=== PATIENT | female | born 1990 | race Caucasian/White ===

== ENCOUNTER 2024-01-21 12:45 | Inpatient (IN) ==
--- NOTE | 2024-01-18 08:53 | Anesthesiology Consultation ---
Date of Service January 18, 2024 Assessment & Plan (1) Encounter for pre-operative examination: Infectious disease screening: Per assessment on 01/18/24- No known recent infectious disease contacts or current infectious disease symptoms. 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 History Surgery Operation Date: 01/24/24 07:30 Proposed Procedures p Section (Delivery of Baby Through Abdominal Incision) - Chloe Ronquillo MD Height/Weight Height: 5 ft 2 in Weight: 63.503 kg Allergies Allergy/AdvReac Type Severity Reaction Status Date / Time No Known Allergies Allergy Verified 01/18/24 08:31 Medications Home Medications Medication Instructions Recorded Confirmed Last Taken [id number] oil 1 tab PO DAILY 07/19/23 01/18/24 Unknown [ Gummy] albuterol sulfate 90 mcg/actuation 1 puff inhalation QID PRN asthma 01/18/24 01/18/24 Unknown aerosol inhaler Past Medical History Medical History Asthma, mild intermittent History of depression Past Family History Family History Aunt Breast cancer maternal Father Heart disease Hypertension Grandmother (Paternal) Myocardial infarction Denies family history of Ovarian cancer Prostate cancer Colorectal cancer Past Surgical History Surgical History H/O section 2012, 2013, 2018 Social History Smoking Status: Never smoker Do You Dip or Chew Tobacco: No Hx Alcohol Use: No Hx Substance Use: No substance use type: does not use
[2024-01-21] MEDS ORDERED: PHENYLEPHRINE 100MCG/ML 5ML SYR ONE (15:32)
[2024-01-21] MEDS ORDERED: PHENYLEPHRINE HCL 25 MG/250 ML NSS IV ONE (15:32)
[2024-01-21] MEDS ORDERED: ONDANSETRON INJ 2 MG/ML 2 ML VIAL ONE (15:32)
[2024-01-21] MEDS ORDERED: DEXAMETHASONE SOD INJ 4 MG/ML VIAL ONE (15:32)
[2024-01-21] MEDS ORDERED: MoRPHine SULFATE PF 1 MG/ML 10 ML AMP/VIAL ONE (15:33)
[2024-01-21] MEDS ORDERED: fentaNYL citrate PF 100 MCG/2 ML VIAL ONE (15:33)
[2024-01-21] MEDS ORDERED: SODIUM CHLORIDE 0.9% 1,000 ML IV SCH ×3 (15:45→19:30)
[2024-01-21 16:28] LABS: Hematocrit (blood only) 36.7 % (37.0-47.0); Hemoglobin 12.6 g/dl (12.0-16.0); Mean Corpuscular Hemoglobin 31.3 pg (25.0-34.0); Mean Corpuscular Hgb Conc 34.3 g/dL (32.0-36.0); Mean Corpuscular Volume 91.3 fL (80.0-100.0); Mean Platelet Volume 10.5 fL (9.4-12.4); Platelet Count 281 K/uL (130-400); RDW Standard Deviation 42.7 fL (36.4-46.3); Red Blood Count 4.02 M/uL (4.20-5.40); White Blood Count 8.16 K/ul (4.8-10.8)
[2024-01-21] MEDS: ACETAMINOPHEN 500 MG TAB PO SCH (16:55)
[2024-01-21] MEDS: ceFAZolin 2000MG 2,000 MG/15 ML SYR IV SCH (17:14)
[2024-01-21] MEDS: CITRIC ACID/SODIUM CITRATE 15 ML UDC PO SCH (17:14)
--- NOTE | 2024-01-21 17:19 | History & Physical Report ---
Date of Service January 21, 2024 Assessment & Plan (1) 39 weeks gestation of : (2) Previous delivery affecting , antepartum: (3) IUGR (intrauterine growth restriction) affecting care of mother: Plan admit,iv, labs. fhts categ 1. aware of indication for delivery and recommendations for such today. has been npo. consent reviewed and signed. will need to d/w us interval tubal and plan to sign ma tubal paperwork. Admission and Anticipated Discharge Date Admission Date: January 21, 2024 History of Present Illness Chief Complaint: planned c/s, iugr Primary Care Provider: Anjali Bell MD 33yo at 39wks ega present to LD from office after new dx of iugr, ac <2%. She was at her routine appt for her planned repeat c/s on wednesday. Physician planned u/s with s<d and efw 12% but ac <2%. She was recommended to present to LD for delivery. NST done in office and reactive. Patient now wants to do tubal but she never signed her appropriate insurance paperwork and aware cannot be done today. PNC c/b 1. Prior c/s x 3. 2. Prior delivery at 36wks PNL rh pos, ri, gbs neg OBH: c/s x 3, x 1. one which was her 2nd born for breech, prom GYNH: nl paps no stds Allergies Allergy/AdvReac Type Severity Reaction Status Date / Time No Known Allergies Allergy Verified 01/18/24 08:31 Home Medications Medication Instructions Recorded Confirmed Type [id number] oil 1 tab PO DAILY 07/19/23 01/21/24 History [ Gummy] albuterol sulfate 90 mcg/actuation 1 puff inhalation QID PRN asthma 01/18/24 01/21/24 History aerosol inhaler Patient History Medical History Asthma, mild intermittent History of depression Surgical History H/O section 2012, 2013, 2017 Family History Aunt Breast cancer maternal Father Heart disease Hypertension Grandmother (Paternal) Myocardial infarction Denies family history of Ovarian cancer Prostate cancer Colorectal cancer Social History Smoking Status: Never smoker Second Hand Exposure: No; Do You Dip or Chew Tobacco: No; Tobacco Cessation Education Requested by Patient: No Hx Alcohol Use: No Hx Substance Use: No Preferred Language: Iranian Communication Ability: Effective Cylinder Press Feeder Required: No Beliefs That Will Affect Care: None marital status: Single marital status details: Johnie Fernandez (37) [phone] Current Living Situation: Family and Significant Other Current Living Situation Comment: lives with boyfriend, 4 children and dog current occupational status: employed 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- [employer] How many Children do You have: 4 Other Information That Helps Us Care for You: No Feels Safe at Home: Yes Safety Concerns: Feels Safe At This Time Childhood Exposure to Second-Hand Smoke: Yes Diet: regular Dental Care, Regularly: No Physical Activity Frequency: 1-2 Times per Week Seatbelt Use: always Sunscreen Use: Yes Assistive Devices: Glasses Review of Systems as per Subjective / HPI Physical Exam Constitutional: WD/WN, vitals as above Respiratory: normal respiratory effort, lungs clear to auscultation Cardiovascular: Rate/Rhythm: regular rate and regular rhythm Gastrointestinal (Abdomen): soft gravid nt Musculoskeletal: no edema nontender calves Neurologic: grossly normal Psychiatric: A+Ox3, euthymic affect Genitourinary: OB Exam Monitor Tracing: + external FHT monitor used, + external uterine monitor used (irreg), + category I and + normal FHT variability Results & Data Vital Signs (Past 12 Hours) Vital Signs Temp Pulse Resp BP 01/21/24 14:26 97.5 F L 20 01/21/24 14:24 77 109/78 Coding Level of Care Code None Diagnoses 39 weeks gestation of Z3A.39 Previous delivery affecting , antepartum O34.219 IUGR (intrauterine growth restriction) affecting care of mother O36.4100
[2024-01-21] MEDS ORDERED: MoRPHine SULFATE PF 1 MG/ML 10 ML AMP/VIAL INT SPINAL ONE (17:38)
[2024-01-21] MEDS ORDERED: HYDROmorphone INJ 0.5 MG/0.5 ML SYR IV PRN (17:38)
[2024-01-21] MEDS ORDERED: NALBUPHINE HCL INJ 10 MG/ML AMP IV PRN (17:38)
[2024-01-21] MEDS ORDERED: ONDANSETRON INJ 2 MG/ML 2 ML VIAL IV PRN (17:38)
[2024-01-21] MEDS ORDERED: diphenhydrAMINE 50 MG/ML VIAL IV PRN (17:38)
[2024-01-21] MEDS ORDERED: NALOXONE HCL 1 MG in SODIUM CHLORIDE 0.9% 1,000 ML IV PRN (17:38)
[2024-01-21] MEDS ORDERED: oxyCODONE HCL IR 5 MG TAB (IMMEDIATE RELEASE) PO PRN (17:38)
[2024-01-21] MEDS ORDERED: PROMETHAZINE 6.25 MG/50.25 ML BAG IV PRN (17:38)
[2024-01-21] MEDS ORDERED: NALOXONE HCL 0.4 MG/1 ML VIAL/CARP IV PRN (17:38)
[2024-01-21] MEDS ORDERED: ePHEDrine sulfate 50 MG/ML AMP IV PRN (17:38)
[2024-01-21] MEDS ORDERED: NO NARCOTICS OR SEDATIVES SCH (17:45)
[2024-01-21] MEDS ORDERED: DC INTRASPINAL MORPHINE SCH (17:45)
--- NOTE | 2024-01-21 18:35 | Operative Report ---
Post Operative Report Pre & Post Diagnosis Operation Date: 01/24/24 07:30 <No data on this case meets the specified criteria> Preop Dx: 1. 39 wk iup 2. IUGR 3. Prior c/s x 3, desires repeat c/s Postop Dx: same, uterine window I identified the patient and participated in the time-out.: Yes Procedure Operation Date: 01/24/24 07:30 <No data on this case meets the specified criteria> Repeat Low Transverse Section. Surgeon Tatianna Amador MD, FACOG Sales Project Coordinator Shira Quantitative Blood Loss (QBL) 433 Findings Consistent with Post-Op Diagnosis (viable infant, apgars 8,9. uterine window, extremely thin muscle with adherent bladder on lower edge of hysterotomy. normal ovaries and tubes bilaterally. ) Fluids 900 Specimens cord blood Drains zaman Anesthesia Type Spinal Complications none Disposition Accompanied Patient To Recovery: No Disposition: L&D Indications 33yo at 39wks with newly discovered iugr with h/o c/s x 3 for planned repeat c/s. Description of Procedure The patient was taken to the operating room and identified. After adequate anesthesia was obtained, she was placed in the supine position with a leftward tilt on the operating table and prepped and draped in the usual sterile fashion. A zaman catheter had already been placed. The knife was used to create a Pfannensteil skin incision that was carried down to the underlying layer of fascia. The fascia was nicked in the midline and this opening was extended laterally using Ely scissors. Charis clamps were placed on the superior and inferior aspect of the fascial incision tenting it upward and the underlying rectus muscles were dissected off the overlying fascia both sharply and bluntly using Ely scissors. The rectus muscles were bluntly in the midline. The peritoneal cavity was bluntly entered into. This opening was stretched. The bladder blade was placed. The vesicouterine peritoneum was elevated and opened up into and the bladder flap was created digitally and bladder blade was replaced. The knife was used to create a hysterotomy and this opening was stretched. The operators hand was placed through the hysterotomy and the bladder blade was removed. The head was elevated and flexed and with fundal pressure the head was delivered. The shoulders and body were rapidly de livered. The cord was clamped and cut and the 's mouth and nares were bulb suction. The infant was handed off to the awaiting pediatricians. Cord blood was obtained. The placenta was manually expressed. The uterus was exteriorized and cleared of all clots and debris. Dilute IV Pitocin was begun. The uterine tone was improving. The hysterotomy was closed in a running interlocking fashion using 0 Vicryl followed by a second imbricating layer of 0 Vicryl. The muscle layer was very thin and approached bladder edge on lower edge. Bladder backfilled to avoid any sutures in dome. The hysterotomy was hemostatic. The pelvis was irrigated. The uterus was returned to the abdomen. The gutters were cleared of all clots and debris. The hysterotomy was reinspected and noted to be hemostatic. The fascia was then closed in running fashion using 0 Vicryl. The subcutaneous fat was copiously irrigated and reapproximated using 2-0 chromic. The skin was closed in a subcuticular fashion using 4-0 monocryl. At this point the procedure was terminated. The patient was transferred to the recovery room in stable condition. All sponge, lap and needle counts are correct x2. I attest to the content of the Intraoperative Record and any orders documented therein. Any exceptions are noted below.
--- NOTE | 2024-01-21 18:44 | Anesthesiology Progress Note ---
Date of Service January 21, 2024 Anesthesia Post Procedure Vital Signs Vital Signs: Temp Pulse Resp BP Pulse Ox 01/21/24 18:41 71 100 01/21/24 18:36 66 96/60 L 100 01/21/24 14:26 36.4 C L 20 01/21/24 14:24 77 109/78 Transfer of Care Handoff Completed per policy Notes Mental Status: alert / awake / arousable and participated in evaluation Patient Amnestic to Procedure: No Nausea / Vomiting: adequately controlled Pain: adequately controlled Airway Patency, RR, SpO2: stable & adequate BP & HR: stable & adequate Hydration State: stable & adequate Neuraxial Anesthesia: was administered and sensory block is resolving Anesthetic Complications: no major complications apparent and Pt Satisfied with anesthetic care
[2024-01-21] MEDS ORDERED: DIPHTHER/TETAN/PERTUS Vaccine (Tdap, Adol/Adult) 0.5mL IM ONE (19:20)
[2024-01-21] MEDS ORDERED: IBUPROFEN 600 MG TAB PO PRN (19:20)
[2024-01-21] MEDS ORDERED: ALBUTEROL HFA 8 GM INHALER INH PRN (19:20)
[2024-01-21] MEDS ORDERED: OXYTOCIN 30 UNITS/NSS 30 UNITS/500 ML BAG IV PRN (19:20)
[2024-01-21] MEDS ORDERED: ACETAMINOPHEN 325 MG TAB PO PRN (19:20)
[2024-01-21] MEDS ORDERED: BENZOCAINE 20% SPRY 85 APPLN/85 GM CAN EXT PRN (19:20)
[2024-01-21] MEDS ORDERED: HYDROCORTISONE ACETATE 25 MG SUPP PR PRN (19:20)
[2024-01-21] MEDS ORDERED: KETOROLAC 30 MG/ML VIAL IV SCH ×2 (19:30)
[2024-01-21] MEDS ORDERED: SENNA 8.6 MG TAB PO PRN (19:30)
[2024-01-21] MEDS ORDERED: CALCIUM CARBONATE 500 MG CHEWABLE TAB PO PRN (19:30)
[2024-01-21] MEDS ORDERED: MAGNESIUM HYDROXIDE SUSP 30 ML UDC PO PRN (19:30)
[2024-01-21] MEDS: KETOROLAC 30 MG/ML VIAL ONE (20:32)
[2024-01-21] MEDS ORDERED: Nursing to Pharmacy Communication SCH (21:45)
[2024-01-21] MEDS: SIMETHICONE 80 MG CHEW PO SCH (23:24)
[2024-01-21] MEDS: DOCUSATE SODIUM 100 MG CAP PO SCH (23:24)
[2024-01-22] MEDS: KETOROLAC 30 MG/ML VIAL IV SCH (02:12)
[2024-01-22] MEDS: ACETAMINOPHEN 325 MG TAB PO SCH (02:13)
--- NOTE | 2024-01-22 06:20 | Obstetrical Progress Note ---
Date of Service January 22, 2024 Assessment & Plan (1) IUGR (intrauterine growth restriction) affecting care of mother: (2) examination following delivery: Plan Pt's hemoglobin and vital signs are within acceptable limits in setting of pt report of dizziness with standing and waling. Pt encouraged to eat and maintain hydration. Otherwise, recovering well. Encourage ambulation Monitor H&H as needed Pain medication as needed Encourage breast feeding Anticipate DC to home on 01/23/24 Admission and Anticipated Discharge Date Admission Date: January 21, 2024 Supervising Physician Co-Signing Physician Notes Resident Physician Supervision Note: I was present with Dr. Beasley during the history and exam. I discussed the case with the resident and agree with the findings and plan as documented in the note. Any exceptions or clarifications are listed here: stable, routine care. eating, awaiting first void. some dizziness but better. no cp or sob. abd soft ff 2 down nt. ext nt calves. incision c/d/i. pod #1 s/p c/s hgb noted. Documented By: Tatianna Amador MD, FACOG Subjective Pt is 33 yo post-op day 1 s/p at 39w for IUGR. Ambulation:In room Voiding:no Passing gas: no BM: no Diet tolerance:regular diet Lochia:bloody, no clots Feeding type: breast Current pain level: 1-3 /10 improved with Tylenol and Toradol Resting comfortably this morning in NAD. Denies MAYEN, CP, SOB, N/V/D, LE pain/swelling. Pt endorses dizziness when standing and walking. Review of Systems Review of Systems: As per HPI Physical Exam Constitutional: WD/WN, vitals as above Respiratory: normal respiratory effort, lungs clear to auscultation Cardiovascular: RRR, no murmur, no edema Gastrointestinal (Abdomen): normal bowel sounds, soft, nontender, no hepatosplenomegaly Uterine fundus firm and at level of umbilicus Incision is clean. dry and well approximated Neurologic: PERRL, EOMI, accommodation nl, no face palsy, no dysarthria Moving all 4 extremities on command Psychiatric: A+Ox3, euthymic affect Results & Data Vital Signs (Past 12 Hours) Vital Signs Temp Pulse Pulse Resp BP BP Pulse Ox 01/22/24 05:00 16 100 01/22/24 04:00 17 99 01/22/24 03:00 16 99 01/22/24 02:00 16 100 01/22/24 01:30 36.4 C L 61 18 120/82 100 01/22/24 01:00 16 100 01/22/24 00:01 16 100 01/21/24 23:00 18 100 01/21/24 22:00 16 99 01/21/24 21:30 01/21/24 21:30 36.5 C 65 16 116/79 99 01/21/24 21:00 16 100 01/21/24 20:32 58 L 18 122/81 01/21/24 20:31 59 L 99 01/21/24 20:26 65 120/87 98 01/21/24 20:21 71 98 01/21/24 20:16 98 01/21/24 20:16 59 L 01/21/24 20:16 56 L 115/78 01/21/24 20:11 63 98 01/21/24 20:06 98 01/21/24 20:06 58 L 01/21/24 20:06 66 112/83 01/21/24 20:01 60 98 01/21/24 19:56 63 109/77 99 01/21/24 19:51 70 98 01/21/24 19:50 68 111/71 01/21/24 19:46 70 97 01/21/24 19:41 71 98 01/21/24 19:36 18 01/21/24 19:36 18 01/21/24 19:36 97 01/21/24 19:36 71 01/21/24 19:36 68 112/82 01/21/24 19:31 65 98 01/21/24 19:26 67 114/73 98 01/21/24 19:21 75 97 01/21/24 19:17 66 18 113/60 01/21/24 19:16 64 98 01/21/24 19:11 83 98 01/21/24 19:06 18 01/21/24 19:06 18 01/21/24 19:06 98 01/21/24 19:06 73 01/21/24 19:06 80 108/55 L 01/21/24 19:01 69 98 01/21/24 18:58 76 100/57 L 01/21/24 18:56 77 100 01/21/24 18:55 57 L 20 98 01/21/24 18:51 57 L 98 01/21/24 18:46 58 L 104/60 99 01/21/24 18:45 58 L 20 104/60 99 01/21/24 18:41 71 100 01/21/24 18:36 66 96/60 L 100 O2 Del Method 01/22/24 05:00 01/22/24 04:00 01/22/24 03:00 01/22/24 02:00 01/22/24 01:30 Room Air 01/22/24 01:00 01/22/24 00:01 01/21/24 23:00 01/21/24 22:00 01/21/24 21:30 Room Air 01/21/24 21:30 Room Air 01/21/24 21:00 01/21/24 20:32 01/21/24 20:31 01/21/24 20:26 01/21/24 20:21 01/21/24 20:16 01/21/24 20:16 01/21/24 20:16 01/21/24 20:11 01/21/24 20:06 01/21/24 20:06 01/21/24 20:06 01/21/24 20:01 01/21/24 19:56 01/21/24 19:51 01/21/24 19:50 01/21/24 19:46 01/21/24 19:41 01/21/24 19:36 01/21/24 19:36 01/21/24 19:36 01/21/24 19:36 01/21/24 19:36 01/21/24 19:31 01/21/24 19:26 01/21/24 19:21 01/21/24 19:17 01/21/24 19:16 01/21/24 19:11 01/21/24 19:06 01/21/24 19:06 01/21/24 19:06 01/21/24 19:06 01/21/24 19:06 01/21/24 19:01 01/21/24 18:58 01/21/24 18:56 01/21/24 18:55 01/21/24 18:51 01/21/24 18:46 01/21/24 18:45 01/21/24 18:41 01/21/24 18:36 Laboratory Results 01/22/24 01/21/24 Range/Units 06:07 16:02 WBC 12.78 H 8.16 (4.8-10.8) K/ul RBC 3.73 L 4.02 L (4.20-5.40) M/uL Hgb 11.5 L 12.6 (12.0-16.0) g/dl Hct 33.5 L 36.7 L (37.0-47.0) % MCV 89.8 91.3 (80.0-100.0) fL MCH 30.8 31.3 (25.0-34.0) pg MCHC 34.3 34.3 (32.0-36.0) g/dL RDW Std Deviation 41.2 42.7 (36.4-46.3) fL RDW Coeff of Rehana 12.7 13.0 (11.5-14.5) % Plt Count 259 281 (130-400) K/uL MPV 10.5 10.5 (9.4-12.4) fL Immature Gran % (Auto) 0.4 % Neut % (Auto) 82.9 % Lymph % (Auto) 11.7 % Throckmorton % (Auto) 4.8 % Eos % (Auto) 0.0 % Baso % (Auto) 0.2 % Neut # (Auto) 10.60 H (1.40-6.50) K/uL Lymph # (Auto) 1.50 (1.20-3.40) K/uL Throckmorton # (Auto) 0.61 H (0.11-0.59) K/uL Eos # (Auto) 0.00 (0.00-0.50) K/uL Baso # (Auto) 0.02 (0.00-0.20) K/uL Immature Gran # (Auto) 0.05 (0.01-0.20) K/uL Treponema pallidum Ab Negative (Negative) Blood Type A Positive Antibody Screen NEGATIVE Resident Activity Tracking Resident Involvement: Resident Care Provided Care Provided: Adult [facility]
[2024-01-22 06:33] LABS: Basophils # (auto) 0.02 K/uL (0.00-0.20); Basophils % (auto) 0.2 %; Hematocrit (blood only) 33.5 % (37.0-47.0); Hemoglobin 11.5 g/dl (12.0-16.0); Immature Granulocytes # (auto) 0.05 K/uL (0.01-0.20); Immature Granulocytes % (auto) 0.4 %; Lymphocytes % (auto) 11.7 %; Mean Corpuscular Hemoglobin 30.8 pg (25.0-34.0); Mean Corpuscular Hgb Conc 34.3 g/dL (32.0-36.0); Mean Corpuscular Volume 89.8 fL (80.0-100.0); Mean Platelet Volume 10.5 fL (9.4-12.4); Monocytes # (auto) 0.61 K/uL (0.11-0.59); Monocytes % (auto) 4.8 %; Neutrophils % (auto) 82.9 %; Platelet Count 259 K/uL (130-400); RDW Coefficient of Variation 12.7 % (11.5-14.5); RDW Standard Deviation 41.2 fL (36.4-46.3); Red Blood Count 3.73 M/uL (4.20-5.40); White Blood Count 12.78 K/ul (4.8-10.8)
[2024-01-22] MEDS: PRENATAL VITAMIN 1 TAB PO SCH (08:27)
[2024-01-22] MEDS: FERROUS SULFATE 325 MG TAB PO SCH (08:28)
[2024-01-22] MEDS: NALOXONE HCL 0.08 MG in SYRINGE 1.8 ML IV PRN (09:52)
[2024-01-22] MEDS ORDERED: oxyCODONE/ACETAMINOPHEN 5mg/325mg TAB PO PRN (11:38)
[2024-01-22] MEDS ORDERED: HYDROmorphone INJ 0.5 MG/0.5 ML SYR IV PRN (11:38)
[2024-01-22] MEDS ORDERED: ONDANSETRON INJ 2 MG/ML 2 ML VIAL IV PRN (11:38)
[2024-01-22] MEDS ORDERED: diphenhydrAMINE 50 MG/ML VIAL IV PRN (11:38)
[2024-01-22] MEDS ORDERED: diphenhydrAMINE Capsule 25 MG CAP PO PRN (11:38)
[2024-01-22] MEDS ORDERED: PROMETHAZINE 12.5 MG/50.5 ML BAG IV PRN (11:38)
[2024-01-22] MEDS ORDERED: KETOROLAC 30 MG/ML VIAL IV PRN (19:30)
[2024-01-22] MEDS: IBUPROFEN 600 MG TAB PO SCH (19:55)
[2024-01-22] MEDS: bisacodyL 5 MG TABEC PO SCH (19:55)
[2024-01-22] MEDS ORDERED: bisacodyL 5 MG TABEC PO SCH (20:00)
[2024-01-23] MEDS: oxyCODONE HCL IR 5 MG TAB (IMMEDIATE RELEASE) PO PRN (06:39)
[2024-01-23 07:10] LABS: Hematocrit (blood only) 31.9 % (37.0-47.0); Hemoglobin 10.6 g/dl (12.0-16.0)
--- NOTE | 2024-01-23 09:11 | Obstetrical Progress Note ---
Date of Service January 23, 2024 Assessment & Plan (1) examination following delivery: Postoperative from section patient meets discharge criteria as she is ambulating well tolerating an oral diet has minimal bleeding and no extremity pain. Discharge instructions were reviewed and prescriptions were sent to her pharmacy of choice patient advised to call with any concerns and follow-up in the office discussed Patient is uncertain whether she wants to go home later today or tomorrow will make this decision later in the day Subjective Ambulation: ambulating normally Voiding: no voiding problems Passing Gas:: Yes Diet Tolerance:: regular diet Lochia:: Small Physical Exam Constitutional WD/WN, vitals as above well developed and well nourished Respiratory normal respiratory effort, lungs clear to auscultation normal respiratory effort Cardiovascular RRR, no murmur, no edema Gastrointestinal (Abdomen) normal bowel sounds, soft, nontender, no hepatosplenomegaly Results & Data Vital Signs (Past 12 Hours) Vital Signs Temp Pulse Resp BP Pulse Ox O2 Del Method 01/23/24 03:00 97.9 F 82 16 104/70 100 Room Air
[2024-01-23 10:04] VITALS: BP 118/78; PULSE 88; RESP 18; TEMP 97.7; O2SAT 99
--- NOTE | 2024-01-24 18:42 | Discharge Summary ---
Date of Service January 24, 2024 Admission HPI Per Admitting Provider 33yo at 39wks ega present to LD from office after new dx of iugr, ac <2%. She was at her routine appt for her planned repeat c/s on wednesday. Physician planned u/s with s<d and efw 12% but ac <2%. She was recommended to present to LD for delivery. NST done in office and reactive. Patient now wants to do tubal but she never signed her appropriate insurance paperwork and aware cannot be done today. PNC c/b 1. Prior c/s x 3. 2. Prior delivery at 36wks PNL rh pos, ri, gbs neg OBH: c/s x 3, x 1. one which was her 2nd born for breech, prom GYNH: nl paps no stds Discharge Data Consultations 01/21/24 15:43 Consult Anesthesiology Stat Procedures Performed Operation Date: 01/24/24 07:30 Repeat Low Transverse Section Uterine window noted. <No data on this case meets the specified criteria> Hospital Course (1) examination following delivery: The patient underwent the above stated procedure without incident and her postoperative course and recovery was uncomplicated. She was made aware that at time of c/s uterine window was noted. On her postoperative day #2 she was tolerating a regular diet, voiding spontaneously, ambulating without problem and was using oral meds for adequate pain control. Her postoperative hemoglobin was 10.6. She was given written and verbal discharge instructions and told to followup in office at 6wks. She was given appropriate pain medicine prescriptions. Coding Level of Care Code None Diagnoses examination following delivery Z39.2
== END 2024-01-23 16:30 | disposition home or self-care (01) | DRG 788 ==
LOC: 4S1 14:04 → 4E2 21:12 → EDSTATUS 01-24 07:30
DX: O09.213 Supervision of pregnancy with history of pre-term labor, third trimester; Z37.0 Single live birth; Z3A.39 39 weeks gestation of pregnancy; O36.5930 Maternal care for other known or suspected poor fetal growth, third trimester, not applicable or unspecified; J45.20 Mild intermittent asthma, uncomplicated; O99.52 Diseases of the respiratory system complicating childbirth; O34.211 Maternal care for low transverse scar from previous cesarean delivery